=== PATIENT | male | born 1950 | race Caucasian/White ===

== ENCOUNTER 2016-09-15 07:48 | Day surgery (SDC) | payer MEDICARE, BC ==
--- NOTE | ~2016-09-15 | EGD ---
EGD REPORT [facility] [address] [address] NAME: LENORE REYNA : [birth year] [place] [facility] [place] [id number] AGE: 66 ADM/REG DATE : 09/15/16 MR#: [id number] REPORT SERV DATE: 09/15/16 DICTATED BY: KAVEH ZHU DATE: 09/15/16 REPORT STATUS : Draft [facility]ANS[facility]IBED BY: [facility] DATE: 09/15/16 [facility] Patient Name: Lenore Reyna Date of : 1950 Attending MD: KAVEH ZHU MD Procedure Date No Time: 09/15/2016 Procedure: Colonoscopy Indications: Generalized abdominal pain, Hematochezia Referring MD: ROGER GARCIA JR. Medicines: Propofol per Anesthesia Complications: No immediate complications. Procedure: Pre-Anesthesia Assessment: - ASA Grade Assessment: II - A patient with mild systemic disease. - Prior to the procedure, a History and Physical was performed, and patient medications and allergies were reviewed. The patient's tolerance of previous anesthesia was also reviewed. The risks and benefits of the procedure and the sedation options and risks were discussed with the patient. All questions were answered, and informed consent was obtained. Prior Anticoagulants: The patient has taken no previous anticoagulant or antiplatelet agents. ASA Grade Assessment: II - A patient with mild systemic disease. After reviewing the risks and benefits, the patient was deemed in satisfactory condition to undergo the procedure. After I obtained informed consent, the scope was passed under direct vision. Throughout the procedure, the patient's blood pressure, pulse, and oxygen saturations were monitored continuously. The PCF [id number] was introduced through the anus and advanced to the cecum, identified by appendiceal orifice and ileocecal valve. The colonoscopy was performed without difficulty. The patient tolerated the procedure well. The quality of the bowel preparation was good. The ileocecal valve, appendiceal orifice and terminal ileum were photographed. The entire colon was examined. The colonoscopy was performed without difficulty. The patient tolerated the procedure well. The quality of the bowel preparation was good. Findings: The perianal and digital rectal examinations were normal. A sessile polyp was found in the proximal transverse colon. The polyp was 5 mm in size. The polyp was removed with a cold biopsy forceps. EGD REPORT [address] [address] NAME: LENORE REYNA : [birth year] [place] : [facility] [place]#: [id number] AGE: 66 ADM/REG DATE : 09/15/16 MR#: [id number] REPORT SERV DATE: 09/15/16 DICTATED BY: KAVEH ZHU DATE: 09/15/16 REPORT STATUS : Draft TRANSCRIBED BY: [employer] DATE: 09/15/16 Resection and retrieval were complete. Diffuse mild inflammation characterized by erosions, erythema and friability was found in the rectum. Random biopsies of the colon were obtained Few small pseudopolyps were seen in the transverse colon and these were biopsied. The rest of the colon was normal Impression: - One 5 mm polyp in the proximal transverse colon. Resected and retrieved. - Diffuse mild inflammation was found in the rectum secondary to proctitis. Recommendation: - Patient has a contact number available for emergencies. The signs and symptoms of potential delayed complications were discussed with the patient. Return to normal activities tomorrow. Written discharge instructions were provided to the patient. - Regular diet. - Patient has a contact number available for emergencies. The signs and symptoms of potential delayed complications were discussed with the patient. Return to normal activities tomorrow. Written discharge instructions were provided to the patient. - Continue present medications. Start pt on canasa suppository one a day for 30 days. Procedure Code(s): --- Professional --- 55412, Colonoscopy, flexible, proximal to splenic flexure; with biopsy, single or multiple Diagnosis Code(s): --- Professional --- D12.3, Benign neoplasm of transverse colon K62.89, Other specified diseases of anus and rectum R10.84, Generalized abdominal pain K92.1, Melena CPT copyright 2013 [employer]. All rights reserved. The codes documented in this report are preliminary and upon purchasing and claims supervisor review may be revised to meet current compliance requirements. Kaveh Zhu MD KAVEH ZHU MD 09/15/2016 10:04 AM EGD REPORT [facility] [address] [facility] [address] [place]. [address] NAME: LENORE REYNA : [birth year] [place] [facility] [place]#: [id number] AGE: 66 ADM/REG DATE : 09/15/16 MR#: [id number] REPORT SERV DATE: 09/15/16 DICTATED BY: KAVEH ZHU. DATE: 09/15/16 REPORT STATUS : Draft TRANSCRIBED BY: [employer] DATE: 09/15/16 This report has been signed electronically. Number of Addenda: 0 Note Initiated On: 09/15/2016 9:39 AM Scope Withdrawal Time 0 hours 6 minutes [address] [place], [place] [address] [address]
[~2016-09-15 07:48] MED LIST: APRISO0.375 GM PO; ASA5GR; ASA5GR PO; ASABAYER PO; ASACOL HD800 MG PO; ASACOL PO; CADUET5 MG/40 MG PO; CENTRUM TAB1 TAB PO; FLOMAX4 PO; MULTIPLE VIT PO; MULTIVITAMI1 PO; NEXIUM40 PO; PERCOCET1 TA4 PO; SUPER B COMP OR; SUPER B COMP PO; SURBEX-T1 TAB PO; VERAMYST27.5 MCG NAS; XARELTO10 MG PO; ZANTAC 150 PO
== END 2016-09-15 23:59 | disposition home or self-care (01) ==
LOC: DMU 07:48
PROVIDERS: Internal Medicine Gastroenterology
PROC: 0DBL8ZZ Excision of Transverse Colon, Via Natural or Artificial Opening Endoscopic (ICD-10-PCS; principal; 2016-09-15 10:30)
DX: D12.3 Benign neoplasm of transverse colon (principal); K62.89 Other specified diseases of anus and rectum; K92.1 Melena; K64.9 Unspecified hemorrhoids; I10 Essential (primary) hypertension; G47.33 Obstructive sleep apnea (adult) (pediatric); K21.9 Gastro-esophageal reflux disease without esophagitis; Z87.891 Personal history of nicotine dependence; Z98.890 Other specified postprocedural states; Z79.82 Long term (current) use of aspirin; Z79.899 Other long term (current) drug therapy
CPT/HCPCS: 88305